=== PATIENT | female | born 1980 | race Caucasian/White ===

== ENCOUNTER 2019-01-23 14:02 | Outpatient (REF) | payer OTHER, SELFPAY ==
--- NOTE | 2019-01-23 11:00 | PAPFT_PTH ---
PATIENT: ESPINOZA NETTLES LOC: [facility] U#:[id number] AGE/SX: 38/F ROOM: RE01/23/[address]: Luis Bingham : 1980 BED: DIS: 01/23/2019 SPEC #: [id number] RECD: 01/24/19 13:19 STATUS: PAM REQ #: [id number] BANDAR: 01/23/19 11:[address]: Luis Bingham DEPT: [facility] Cytology RECD BY: Carlene Castro Tissues: 1 - CX/ENDOCX FOR PAP SMEARS Procedures: PAP THIN PREP/[facility] Screening HPV DNA PROBE Comments: [id number]
== END 2019-01-23 14:22 ==
LOC: NCHCN 14:02
PROVIDERS: PCP Family Medicine; Visit Provider Family Medicine
DX: Z00.00 Encounter for general adult medical examination without abnormal findings (principal); Z12.4 Encounter for screening for malignant neoplasm of cervix; Z11.51 Encounter for screening for human papillomavirus (HPV)
CPT/HCPCS: 88142; 87624

== ENCOUNTER 2020-05-06 20:26 | Outpatient (REF) | payer MEDICAID, SELFPAY ==
[2020-05-06 21:10] LABS: HCT 38.4 % (36.0-46.0); HGB 12.4 g/dL (11.2-15.7); MCH 28.3 pg (27.0-33.0); MCHC 32.3 % (32.0-36.0); MCV 87.7 fL (80-95); MPV 11.1 fL (8.0-11.0); Platelet Count 241 10^3/uL (130-400); RBC 4.38 10^6/uL (3.93-5.22); RDW 13.1 % (11.7-14.6); RDW-SD 42.2 fL; WBC 7.73 10^3/uL (4.4-10.8)
[2020-05-06 21:33] LABS: Anion Gap 4.8 mmol/L (3-11); BUN 12 mg/dL (7-18); CO2 29.2 mmol/L (21.0-32.0); CREATININE 0.63 mg/dL (0.55-1.02); Calcium 8.2 mg/dL (8.5-10.1); Calculated LDL 144 mg/dL (<100); Chloride 105 mmol/L (98-107); Cholesterol 218 mg/dL (<200); Glucose 85 mg/dL (74-106); HDL Cholesterol 66 mg/dL (40-60); Potassium 4.1 mmol/L (3.5-5.1); Sodium 139 mmol/L (136-145); TSH (W/Ref FT4) 2.29 uIU/mL (0.36-3.74); Triglyceride 43 mg/dL (<150)
[2020-05-06 21:43] LABS: Vitamin D 25 Total 47.5 ng/ml (30-100)
== END 2020-05-06 20:46 ==
LOC: NCHCN 20:26
PROVIDERS: PCP Family Medicine; Visit Provider Family Medicine
DX: R53.83 Other fatigue (principal); Z13.220 Encounter for screening for lipoid disorders; Z13.21 Encounter for screening for nutritional disorder
CPT/HCPCS: 80048; 80061; 82306; 85027; 84443